=== PATIENT | female | born 1960 | race Caucasian/White ===

== ENCOUNTER → 2023-11-19 13:53 | Outpatient (REF) | payer OTHER, SELFPAY ==
[2023-11-19 14:43] LABS: INR 2.99
== END ==
LOC: REG 13:53
PROVIDERS: ATTENDING PHYSICIAN Family Medicine
DX: Z79.01 Long term (current) use of anticoagulants (principal); D68.318 Other hemorrhagic disorder due to intrinsic circulating anticoagulants, antibodies, or inhibitors
CPT/HCPCS: 36415; 85610

== ENCOUNTER → 2023-12-30 09:26 | Outpatient (REF) | payer OTHER, SELFPAY ==
[2023-12-30 14:17] LABS: INR 2.51
== END ==
LOC: REG 09:26
PROVIDERS: ATTENDING PHYSICIAN Family Medicine
DX: Z79.01 Long term (current) use of anticoagulants (principal); D68.318 Other hemorrhagic disorder due to intrinsic circulating anticoagulants, antibodies, or inhibitors
CPT/HCPCS: 36415; 85610

== ENCOUNTER → 2024-01-03 08:52 | Outpatient (REF) | payer OTHER, SELFPAY | LOC: WDC 08:52 | PROVIDERS: ATTENDING PHYSICIAN Physician Assistant | DX: Z12.31 Encounter for screening mammogram for malignant neoplasm of breast (principal) | CPT/HCPCS: 77063; 77067 ==

== ENCOUNTER → 2024-01-25 10:54 | Outpatient (REF) | payer OTHER, SELFPAY ==
[2024-01-25 11:54] LABS: INR 3.03; PT 31.3 Sec (11.4-14.6)
== END ==
LOC: REG 10:54
PROVIDERS: ATTENDING PHYSICIAN Family Medicine
DX: Z79.01 Long term (current) use of anticoagulants (principal); D68.318 Other hemorrhagic disorder due to intrinsic circulating anticoagulants, antibodies, or inhibitors
CPT/HCPCS: 36415; 85610

== ENCOUNTER → 2024-02-11 08:40 | Outpatient (REF) | payer OTHER, SELFPAY ==
[2024-02-11 13:34] LABS: INR 2.44; PT 26.4 Sec (11.4-14.6)
== END ==
LOC: REG 08:40
PROVIDERS: ATTENDING PHYSICIAN Family Medicine
DX: Z79.01 Long term (current) use of anticoagulants (principal)
CPT/HCPCS: 36415; 85610

== ENCOUNTER 2024-04-09 16:54 | Emergency (ER) | payer OTHER, SELFPAY ==
[2024-04-09 16:57] VITALS: BP 167/87
[2024-04-09 17:37] VITALS: BMI 26.3
--- NOTE | 2024-04-09 17:43 | ED.GENMED ---
History of Present Illness
General
Chief Complaint: Rabies
Source: patient
Exam Limitations: none
Time Seen by Provider: 04/09/24 17:20
Nursing documentation reviewed up to this point in time: agreed with
History of Present Illness
History of Present Illness:
patient states she was scratched by a stray cat 3 days ago. Evaluated by PCP today and sent to ED to begin rabies series. Presents with 3 puncture wounds left coker. NO s/s infection
Past History
Past History
ED Past Medical History: HTN and Other (Asthma, pulmonary embolus, Damico's esophagus)
ED Past Surgical History: Cardiac and Orthopedic
Social History
Tobacco: Former smoker
Alcohol: None
Drug: None
Living: with family
Employment: Employed
Family History
Family History: Hypertension and CAD (brother [place] at 54)
Review of Systems
Review of Systems
Allergies reviewed?: Yes
All Other Systems: ROS reviewed and negative except as documented in HPI and ROS
Constitutional: Reports no symptoms
Musculoskeletal: Reports no symptoms
Skin: Reports no symptoms (3 punture wounds left coker. No s/s infection)
Neurological: Reports no symptoms
Psychiatric: Reports no symptoms
Phy Exam
General Physical Exam
General Presentation: well appearing and no apparent distress
General age: appears stated age
General Skin: warm and dry
General Habitus: normal
General Mental: alert
Musculoskeletal Exam
Musculoskeletal Exam: full ROM
Skin Exam
Skin Exam: normal color, warm/dry, no rash and other (3 puncture wounds to left coker. NO redness swelling or discharge.)
Psychiatric Exam
Psychiatric Exam: normal mood/affect
Course
Orders/Labs/Results
Orders:
Orders
04/09/24 17:32
Rabies Vaccine (Pcec)/Pf [Rabavert Rabies Vacc W-Diluent] 2.5 unit IM .ONCE ONE
04/09/24 17:42
Rabies Immune Globulin/Pf [HyperRAB] 1,344 unit IM NOW STA
Vital Signs
Initial and Last Documented VS:
Initial Vital Signs
Temp Pulse Resp BP Pulse Ox
97.9 F 87 16 167/87 96
04/09/24 16:57 04/09/24 16:57 04/09/24 16:57 04/09/24 16:57 04/09/24 16:57
Last Documented Vital Signs
Temp Pulse Resp BP Pulse Ox
97.9 F 87 16 167/87 96
04/09/24 16:57 04/09/24 16:57 04/09/24 16:57 04/09/24 16:57 04/09/24 16:57
*Critical Care Note
Total Time (30-74mins, 75-104mins- exclusive of procedures): Not Applicable
ED Attending Note
-
Portions of this chart may have been created with voice recognition software.� Occasional wrong word or��sound alike� substitutions may have occurred due to the inherent limitations of voice recognition software.
Discharge Plan
Departure
Patient Disposition: Home (Routine Discharge)
Date of Disposition: 04/09/24
Time of Disposition: 17:33
Patient with high blood pressure during this ER visit?: No
Condition: Good
Covid-19: Not Applicable
Discharge Problem:
Exposure to rabies
Instructions: Rabies Vaccine, Wound Care ED
Prescriptions:
New
RabAvert (PF) 2.5 unit Suspension For Reconstitution
1 ml IM . DIRECTED Qty: 3 0RF
Rx Instructions:
See Rabies Vaccine Post Exposure Prophylaxis Instruction Sheet for Dosing Instructions
No Action
rabeprazole [AcipHex] 20 MG tablet,delayed release (DR/EC)
20 mg PO BID
valsartan-hydrochlorothiazide [Diovan HCT] 1 EACH tablet
1 ea PO DAILY
Patient Comments:
80/12.5
potassium chloride [Klor-Con M20] 20 MEQ tablet,ER particles/crystals
20 meq PO DAILY
folic acid 1 MG tablet
800 mcg PO DAILY
albuterol 17 GM aerosol
90 mcg IH PRN PRN (Reason: asthma)
Coumadin
10 mg PO QPM
calcium carbonate [Calcium 600] 600 MG tablet
1 tab PO DAILY
fluticasone propionate [Flovent HFA] 1 PUFF HFA aerosol inhaler
2 puff inhalation R BID
cyanocobalamin (vitamin B-12) 1,000 MCG tablet
1,000 mcg PO DAILY
oxycodone-acetaminophen 5 MG/325 MG tablet
1 - 2 tab PO Q4HPRN PRN (Reason: moderate to severe pain) Qty: 20 0RF
Stand Alone Forms: Rabies Vaccine Post Exp Dosing
Activity Restrictions/Additional Instructions:
Follow up at the infusion center for the remaining rabies vaccines.
Interventions
Interventions:
*General Assessment Last Done: 04/09/24 16:57
*Neglect/Abuse Screening Last Done: 04/09/24 17:23
*ED COVID-19 Vaccine History Last Done: 04/09/24 16:57
Discharge Date and Time
Print Language: MALIAN
[2024-04-09] MEDS: RABAVERT RABIES VACC W-DILUENT 2.5 UNIT IM (18:28)
[2024-04-09] MEDS: HyperRAB 1344 UNIT IM (18:36)
[2024-04-09 18:59] VITALS: BP 152/75
[2024-04-09 19:00] VITALS: BP 152/75
== END 2024-04-09 19:01 | disposition home or self-care (01) ==
LOC: EMR 16:54
PROVIDERS: EMERGENCY PHYSICIAN Emergency Medicine; FAMILY PHYSICIAN Physician Assistant
DX: Z20.3 Contact with and (suspected) exposure to rabies (principal); Z23 Encounter for immunization; Z29.14 Encounter for prophylactic rabies immune globulin; W55.03XA Scratched by cat, initial encounter
CPT/HCPCS: 99284; 90471; 96372; 90375; 90675

== ENCOUNTER 2024-04-23 14:10 | Outpatient (RCR) | payer OTHER, SELFPAY ==
[2024-04-13 14:32] VITALS: BP 117/56
[2024-04-13] MEDS: RABAVERT RABIES VACC W-DILUENT 2.5 UNIT IM (14:44)
[2024-04-16 14:31] VITALS: BP 150/68
[2024-04-16] MEDS: RABAVERT RABIES VACC W-DILUENT 2.5 UNIT IM (14:34)
[2024-04-23 14:30] VITALS: BP 142/58
[2024-04-23] MEDS: RABAVERT RABIES VACC W-DILUENT 2.5 UNIT IM (14:53)
== END 2024-04-24 08:26 | disposition home or self-care (01) ==
LOC: OID 14:10
PROVIDERS: ATTENDING PHYSICIAN Emergency Medicine; FAMILY PHYSICIAN Family Medicine
DX: Z20.3 Contact with and (suspected) exposure to rabies (principal); Z23 Encounter for immunization
CPT/HCPCS: 90471; 90675

== ENCOUNTER → 2024-05-12 10:05 | Outpatient (REF) | payer OTHER, SELFPAY ==
[2024-05-12 12:31] LABS: INR 3.18; PT 32.5 Sec (11.4-14.6)
== END ==
LOC: REG 10:05
PROVIDERS: ATTENDING PHYSICIAN Family Medicine
DX: Z79.01 Long term (current) use of anticoagulants (principal); D68.318 Other hemorrhagic disorder due to intrinsic circulating anticoagulants, antibodies, or inhibitors
CPT/HCPCS: 36415; 85610

== ENCOUNTER 2024-06-02 10:43 | Emergency (ER) | payer OTHER, SELFPAY ==
[2024-06-02 10:49] VITALS: BP 178/86
[2024-06-02 11:56] VITALS: BMI 24.1
--- NOTE | 2024-06-02 12:01 | ED.GENMED ---
History of Present Illness
General
Chief Complaint: Rabies
Source: patient and records
Exam Limitations: none
Time Seen by Provider: 06/02/24 11:12
Nursing documentation reviewed up to this point in time: agreed with
History of Present Illness
History of Present Illness:
63-year-old female presents for evaluation after a cat scratch�was referred to the ER for rabies booster. Patient reports that she was scratched by a stray cat on her left ankle. She says that she disclosed this to her PCP who sent her to the ER
for rabies booster. She notably had similar exposure in March and had full rabies vaccination series at that time. She says that the scratch occurred on Saturday and she has not noticed any redness or pain. No other complaints or issues.
Past History
Past History
ED Past Medical History: HTN and Other (Asthma, pulmonary embolus, Damico's esophagus)
ED Past Surgical History: Cardiac and Orthopedic
Social History
Tobacco: Former smoker
Alcohol: None
Drug: None
Living: with family
Employment: Employed
Family History
Family History: Hypertension and CAD (brother [place] at 54)
Review of Systems
Review of Systems
All Other Systems: ROS reviewed and negative except as documented in HPI and ROS
Skin: Reports other (Cat scratch)
Phy Exam
Physical Exam
Physical Exam:
General: Well appearing and non-toxic
HEENT: protecting airway
Neck: appears supple
CV: No evidence of cyanosis
Resp: No accessory muscle use
Abd: Non-distended
Extremities: No deformities
Neuro: Alert
Psych: Normal affect
Skin: Tiny superficial scratch on the left ankle with no erythema, warmth, induration, swelling or tenderness
Scores
Heart Failure Risk
Heart Failure Risk Score: Not Applicable
Heart Score for Chest Pain Patients
STEMI patient?: Not applicable
Withdrawal Assessment of Alcohol
Withdrawal Assessment Completed?: Not applicable
Course
Orders/Labs/Results
Orders:
Orders
06/02/24 11:45
Rabies Vaccine (Pcec)/Pf [Rabavert Rabies Vacc W-Diluent] 2.5 unit IM .ONCE ONE
Vital Signs
Initial and Last Documented VS:
Initial Vital Signs
Temp Pulse Resp BP Pulse Ox
36.8 C 74 16 178/86 98
06/02/24 10:49 06/02/24 10:49 06/02/24 10:49 06/02/24 10:49 06/02/24 10:49
Last Documented Vital Signs
Temp Pulse Resp BP Pulse Ox
36.8 C 74 16 178/86 98
06/02/24 10:49 06/02/24 10:49 06/02/24 10:49 06/02/24 10:49 06/02/24 10:49
MDM/Problems Addressed
Differential Diagnosis Includes:
Cat scratch, low risk rabies exposure
MDM/Problems Addressed:
63-year-old female sent in by her primary doctor for rabies booster�had a cat scratch on her ankle by a stray cat. No bites. She had her full rabies vaccination series a month and a half ago. No signs of wound infection. Per CDC guidelines we
will provide rabies vaccination booster today and on day 3. Discharge with return precautions for signs of infection. Follow-up with PCP for hypertension.
Acute Exacerbation and/or Progression of Chronic Illness:
Acutely hypertensive�no signs or symptoms of hypertensive emergency no indication for emergent antihypertensive treatment at present
Acute Exacerbation and/or Progression of Chronic Illness: HTN
*Pulse Oximetry
Patient hypoxic: no
*Critical Care Note
Total Time (30-74mins, 75-104mins- exclusive of procedures): Not Applicable
Data Reviewed
Source: patient and records
ED Attending Note
-
Portions of this chart may have been created with voice recognition software.� Occasional wrong word or��sound alike� substitutions may have occurred due to the inherent limitations of voice recognition software.
Discharge Plan
Departure
Patient Disposition: Home (Routine Discharge)
Date of Disposition: 06/02/24
Time of Disposition: 11:21
Patient with high blood pressure during this ER visit?: No
Discharge Problem:
Cat scratch
Instructions: Rabies Vaccine
Prescriptions:
New
RabAvert (PF) 2.5 unit Suspension For Reconstitution
1 ml IM . DIRECTED Qty: 1 0RF
Rx Instructions:
See Rabies Vaccine Post Exposure Prophylaxis Instruction Sheet for Dosing Instructions
No Action
rabeprazole [AcipHex] 20 MG tablet,delayed release (DR/EC)
20 mg PO BID
valsartan-hydrochlorothiazide [Diovan HCT] 1 EACH tablet
1 ea PO DAILY
Patient Comments:
80/12.5
potassium chloride [Klor-Con M20] 20 MEQ tablet,ER particles/crystals
20 meq PO DAILY
folic acid 1 MG tablet
800 mcg PO DAILY
albuterol 17 GM aerosol
90 mcg IH PRN PRN (Reason: asthma)
Coumadin
10 mg PO QPM
fluticasone propionate [Flovent HFA] 1 PUFF HFA aerosol inhaler
2 puff inhalation R BID
cyanocobalamin (vitamin B-12) 1,000 MCG tablet
500 mcg PO DAILY
RabAvert (PF) 2.5 unit Suspension For Reconstitution
1 ml IM . DIRECTED Qty: 3 0RF
Rx Instructions:
See Rabies Vaccine Post Exposure Prophylaxis Instruction Sheet for Dosing Instructions
Calcium + Vitamin D 600 mg calcium- 200 unit Tablet
1 tab PO DAILY
Stand Alone Forms: Rabies Vaccine Post Exp Dosing
Activity Restrictions/Additional Instructions:
You were seen after a cat scratch, sent in for rabies postexposure prophylaxis. You were given rabies vaccine today you should receive a booster on Saturday as directed. You do not need to receive the full vaccination series as you have been
vaccinated in the past. Please monitor the area of your cat scratch for signs of infection, if you notice redness or swelling, increased pain you should return to the emergency room to have the area assessed.
Thank you for visiting the Emergency Department at [facility].
1. Please schedule a follow up appointment as directed. Call first thing tomorrow morning to make an appointment.
2. If indicated, please take your medications as instructed and indicated on discharge paperwork.
3. If any of your symptoms do not improve, or persist, or become more severe within 6-12 hours, please return to the emergency department for further care.
4. Please return to the emergency department if you develop a headache, neck pain/stiffness, fever greater than 100.4F, chest pain, shortness of breath, persistent nausea, vomiting, slurred speech, difficulty walking, numbness/tingling, weakness,
signs of infection or any other symptoms that are worrisome to you.
Please call [phone] if you have any questions.
Interventions
Interventions:
*Risk Screen - Suicide Last Done: 06/02/24 10:49
*General Assessment Last Done: 06/02/24 10:49
*Neglect/Abuse Screening Last Done: 06/02/24 10:49
ED- Fall Risk Assessment Last Done: 06/02/24 12:05
*ED COVID-19 Vaccine History Last Done: 06/02/24 11:57
*Nursing Disposition Last Done: 06/02/24 12:05
Discharge Date and Time
Print Language: LATVIAN
[2024-06-02] MEDS: RABAVERT RABIES VACC W-DILUENT 2.5 UNIT IM (12:04)
== END 2024-06-02 12:06 | disposition home or self-care (01) ==
LOC: EMR 10:43
PROVIDERS: EMERGENCY PHYSICIAN Emergency Medicine; FAMILY PHYSICIAN Family Medicine
DX: Z20.3 Contact with and (suspected) exposure to rabies (principal); Z23 Encounter for immunization; S90.512A Abrasion, left ankle, initial encounter; W55.03XA Scratched by cat, initial encounter; I10 Essential (primary) hypertension; K21.9 Gastro-esophageal reflux disease without esophagitis; K22.70 Barrett's esophagus without dysplasia; J45.909 Unspecified asthma, uncomplicated; Z86.711 Personal history of pulmonary embolism; Z87.891 Personal history of nicotine dependence; Z90.49 Acquired absence of other specified parts of digestive tract; Z88.8 Allergy status to other drugs, medicaments and biological substances; Z91.041 Radiographic dye allergy status
CPT/HCPCS: 99281; 90471; 90675

== ENCOUNTER 2024-06-05 14:27 | Outpatient (RCR) | payer OTHER, SELFPAY ==
[2024-06-05 14:34] VITALS: BP 135/66
[2024-06-05] MEDS: RABAVERT RABIES VACC W-DILUENT 2.5 UNIT IM (14:49)
== END 2024-06-08 08:11 | disposition home or self-care (01) ==
LOC: OID 14:27
PROVIDERS: ATTENDING PHYSICIAN Emergency Medicine; FAMILY PHYSICIAN Family Medicine
DX: Z20.3 Contact with and (suspected) exposure to rabies (principal); Z23 Encounter for immunization
CPT/HCPCS: 90471; 90675

== ENCOUNTER → 2024-06-08 16:02 | Outpatient (REF) | payer OTHER, SELFPAY ==
[2024-06-08 17:00] LABS: INR 3.56; PT 35.6 Sec (11.4-14.6)
== END ==
LOC: REG 16:02
PROVIDERS: ATTENDING PHYSICIAN Family Medicine
DX: Z79.01 Long term (current) use of anticoagulants (principal)
CPT/HCPCS: 36415; 85610

== ENCOUNTER 2024-09-01 16:14 | Emergency (ER) | payer MEDICARE, OTHER, SELFPAY ==
[2024-09-01 16:17] VITALS: BP 176/74
--- NOTE | 2024-09-01 16:18 | ED.GENMED ---
ED Provider Triage
<Ly Orosco PA-C - Last Filed: 09/01/24 16:21>
-
Patient seen by provider in Triage?: Seen in Triage
Attestation: A medical screening examination has been initiated by a qualified medical provider. Based on the assessment performed at this time, it has been determined that an emergent medical condition may exist and the patient has been informed
that further medical evaluation and possible additional diagnostic testing may be needed.
HPI: 64yoF here with L lower back pain x 1 week. Started with stomach cramping yesterday and had pink tinged urine this morning. On Coumadin for prior PEs.
GENERAL: Alert , in no apparent distress
EYE: No visual abnormalities.
NECK: Trachea midline
ENT: No visible abnormalities.
LUNGS: No acute respiratory distress
NEUROLOGICAL: Alert and oriented
SKIN: Skin intact. No visible changes.
MUSCULOSKELETAL: Moving extremities normally
PSYCH: Normal and appropriate interaction.
This is a medical evaluation conducted in person to initiate diagnostic evaluation and provide initial therapeutics. Please see further documentation by the treating clinician.
CBC, CMP, UA, and CT abdomen without contrast ordered.
History of Present Illness
<Ly Orosco PA-C - Last Filed: 09/01/24 16:21>
General
Chief Complaint: Abdominal Symptoms
Time Seen by Provider: 09/01/24 19:49
<ANGELA Hong - Last Filed: 09/01/24 20:20>
General
Source: patient
Exam Limitations: none
History of Present Illness
History of Present Illness:
This is a 64 year old female that comes in with c/o left lower back and abd pain. States that she called the PCP and was told to come to the ER. States that she started a couple days ago with left lower back pain. Then Yesterday she started with
lower abd cramping. Today she had blood in her urine. Denies any fever, chills, chest pain, SOB, nausea, vomiting, diarrhea, headache, dizziness, burinray burning.
Past History
<Ly Orosco PA-C - Last Filed: 09/01/24 16:21>
Past History
ED Past Medical History: HTN and Other (Asthma, pulmonary embolus, Damico's esophagus)
ED Past Surgical History: Cardiac and Orthopedic
Social History
Tobacco: Former smoker
Alcohol: None
Drug: None
Living: with family
Employment: Employed
Family History
Family History: Hypertension and CAD (brother [place] at 54)
<ANGELA Hong - Last Filed: 09/01/24 20:20>
Past History
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
ED Past Surgical History: Cholecystectomy, Gynecological (Endometrial ablation), Orthopedic (Cartlidge removed from right knee) and Other (Vein stripping)
Social History
Tobacco: Former smoker
Alcohol: None
Drug: None
Personal:
Living: alone
Review of Systems
<ANGELA Hong - Last Filed: 09/01/24 20:20>
Review of Systems
All Other Systems: ROS reviewed and negative except as documented in HPI and ROS
Constitutional: Reports no symptoms; Denies fever or chills
EENT: Reports no symptoms
Respiratory: Reports no symptoms; Denies cough or trouble breathing
Cardiac: Reports no symptoms; Denies chest pain
ABD/GI: Reports abdominal pain; Denies nausea, vomiting or diarrhea
: Reports bleeding (In urine)
Musculoskeletal: Reports no symptoms
Skin: Reports no symptoms
Neurological: Reports no symptoms; Denies dizzy or headache
Psychiatric: Reports no symptoms
Phy Exam
<ANGELA Hong - Last Filed: 09/01/24 20:20>
General Physical Exam
General Presentation: well appearing and no apparent distress
General age: appears stated age
General Skin: warm and dry
General Habitus: elderly
General Mental: alert
General Hydration: appears well hydrated
ENT Exam
ENT Exam: TM's normal, pharynx normal and neck supple
Eye Exam
Eye Exam: EOMI
Cardiovascular Exam
Cardiovascular Exam: regular rate/rhythm, no murmur and normal peripheral pulses
Pulmonary Exam
Pulmonary Exam: lungs clear, no respiratory distress, no rales, chest non tender, no crackles, no rhonchi, no wheezing and no cough
Gastrointestinal Exam
Gastrointestinal Exam: normal bowel sounds, soft, no organomegaly, no pulsatile mass, non distended and tender (Upper abd tenderness and left sided tenderness with palpation)
Musculoskeletal Exam
Musculoskeletal Exam: full ROM and no edema
Skin Exam
Skin Exam: normal color, warm/dry, no rash and no petechia
Psychiatric Exam
Psychiatric Exam: normal mood/affect
Course
<Ly Orosco PA-C - Last Filed: 09/01/24 16:21>
Orders/Labs/Results
Orders:
Orders
09/01/24 16:21
CT Abd/pel Without Iv Or Oral Urgent
Comment:
Reason For Exam: L flank pain, hematuria
09/01/24 16:37
Complete Blood Count/With Diff Urgent
Comprehensive Metabolic Panel Urgent
Prothrombin Time Urgent
Urinalysis Reflex To Culture Urgent
Date Specimen was Collected: 09/01/24
Time Specimen was Collected: 16:24
Urine Microscopic Reflex Cult Urgent
Abnormal Lab Results
09/01/24
16:37
PT 42.5 H Sec
(11.4-14.6)
Potassium 3.4 L mmol/L
(3.5-5.1)
Glucose 140 H mg/dl
(70-99)
Ur Occult Blood Reflex 4+ A
(Negative)
Urine RBC >100 A /HPF
(0-2)
09/01/24 16:37
09/01/24 16:37
Vital Signs
Initial and Last Documented VS:
Initial Vital Signs
Temp Pulse Resp BP Pulse Ox
98.3 F 94 18 176/74 99
09/01/24 16:17 09/01/24 16:17 09/01/24 16:17 09/01/24 16:17 09/01/24 16:17
Last Documented Vital Signs
Temp Pulse Resp BP Pulse Ox
98.5 F 72 18 160/72 98
09/01/24 18:22 09/01/24 19:53 09/01/24 19:53 09/01/24 19:53 09/01/24 19:53
<ANGELA Hong - Last Filed: 09/01/24 20:20>
Orders/Labs/Results
Orders:
Orders
09/01/24 16:21
CT Abd/pel Without Iv Or Oral Urgent
Comment:
Reason For Exam: L flank pain, hematuria
09/01/24 16:37
Complete Blood Count/With Diff Urgent
Comprehensive Metabolic Panel Urgent
Prothrombin Time Urgent
Urinalysis Reflex To Culture Urgent
Date Specimen was Collected: 09/01/24
Time Specimen was Collected: 16:24
Urine Microscopic Reflex Cult Urgent
Abnormal Lab Results
09/01/24
16:37
PT 42.5 H Sec
(11.4-14.6)
Potassium 3.4 L mmol/L
(3.5-5.1)
Glucose 140 H mg/dl
(70-99)
Ur Occult Blood Reflex 4+ A
(Negative)
Urine RBC >100 A /HPF
(0-2)
09/01/24 16:37
09/01/24 16:37
PT 42.5 with INR 4.54, Potassium very slightly low. Hyperglycemia. Urine negative for infection, possitive for blood
Vital Signs
Initial and Last Documented VS:
Initial Vital Signs
Temp Pulse Resp BP Pulse Ox
98.3 F 94 18 176/74 99
09/01/24 16:17 09/01/24 16:17 09/01/24 16:17 09/01/24 16:17 09/01/24 16:17
Last Documented Vital Signs
Temp Pulse Resp BP Pulse Ox
98.5 F 72 18 160/72 98
09/01/24 18:22 09/01/24 19:53 09/01/24 19:53 09/01/24 19:53 09/01/24 19:53
<ANGELA Hong - Last Filed: 09/01/24 20:20>
MDM/Problems Addressed
Differential Diagnosis Includes:
Constipation. Diverticulitis, UTI.
MDM/Problems Addressed:
This is a 64 year old female that comes in with c/o lower abd pain, back pain on the left and blood in her urine today
Patient had blood work and CT scan. Explained to patient that her blood work shows that her Potassium is slightly low. Her CT scan shows constipation and a left ovarian cyst. Her PT/INR is elevated. Will have patient hold her Coumadin tonight and
recheck her level before starting. Patient to call her PCP for instruction. Will give patient a Bottle of Magnesium citrate and encouraged patient to increase her water intake to 8-8oz glasses daily. Follow up with the PCP. Return with any concerns.
Chronic conditions affecting care:
NA
Acute Exacerbation and/or Progression of Chronic Illness:
NA
<ANGELA Hong - Last Filed: 09/01/24 20:20>
*Radiology
Radiology exam reviewed: radiology read reviewed (CT-No evidence of urinary patholoty considering the unenhanced technique. Simple left ovarian cyst. Large amount of fecal material throughout the colon. Progressed. Severe atherosclerotic vascular
disease. Findings suggesting probable prominent Schmorl's nodes/old discitis of the superior endplate ) and other (CT cont- of endplate of L2. New from previous exam. )
*Pulse Oximetry
Patient hypoxic: no
*EKG
Interpreted by ED Provider?: NA
Rate: EKG- N/A
*Sales Account Coordinator Interpretation
Rate: Sales Account Coordinator- N/A
*Critical Care Note
Total Time (30-74mins, 75-104mins- exclusive of procedures): Not Applicable
ED Attending Note
<Ly Orosco PA-C - Last Filed: 09/01/24 16:21>
-
Portions of this chart may have been created with voice recognition software.� Occasional wrong word or��sound alike� substitutions may have occurred due to the inherent limitations of voice recognition software.
Discharge Plan
Departure
Disposition: Home (Routine Discharge)
Date of Disposition: 09/01/24
Time of Disposition: 20:18
Patient with high blood pressure during this ER visit?: Yes
Condition: Good
Covid-19: Not Applicable
Discharge Problem:
Elevated INR (international normalized ratio), Low back pain, Acute constipation
Instructions: Low Back Pain (DC), Prothrombin time and INR (PT/INR), Constipation, Adult ED, BLOOD PRESSURE
Prescriptions:
No Action
rabeprazole [AcipHex] 20 MG tablet,delayed release (DR/EC)
20 mg PO BID
valsartan-hydrochlorothiazide [Diovan HCT] 1 EACH tablet
1 ea PO DAILY
Patient Comments:
80/12.5
potassium chloride [Klor-Con M20] 20 MEQ tablet,ER particles/crystals
20 meq PO DAILY
folic acid 1 MG tablet
800 mcg PO DAILY
albuterol 17 GM aerosol
90 mcg IH PRN PRN (Reason: asthma)
Coumadin
10 mg PO QPM
fluticasone propionate [Flovent HFA] 1 PUFF HFA aerosol inhaler
2 puff inhalation R BID
cyanocobalamin (vitamin B-12) 1,000 MCG tablet
500 mcg PO DAILY
Calcium + Vitamin D 600 mg calcium- 200 unit Tablet
1 tab PO DAILY
RabAvert (PF) 2.5 unit Suspension For Reconstitution
1 ml IM . DIRECTED Qty: 1 0RF
Rx Instructions:
See Rabies Vaccine Post Exposure Prophylaxis Instruction Sheet for Dosing Instructions
Additional Instructions:
As discussed, your blood work shows that your potassium level is a little low. You have been given oral potassium here to help elevate this. Your INR is also to high. PLEASE HOLD YOUR COUMADIN TONIGHT AND CALL YOUR FAMILY DOCTOR TOMORROW FOR FURTHER
INSTRUCTION. Your CT shows that you are Constipated. You have been given a bottle of magnesium Citrate. This will work form the top down. IT can take up to 6 hour to work and can cause abd cramping. Please increase your water intake to 8-8oz glasses
daily. You may also use Tylenol 1000mg every 6 hours for the low back pain. IF YOU HAVE ANY OTHER CONCERNS PLEASE RETURN TO THE EMERGENCY ROOM.
Interventions
Interventions:
*Risk Screen - Suicide Last Done: 09/01/24 19:53
*Neglect/Abuse Screening Last Done: 09/01/24 19:53
RV-Louqtx-Adeldjbjhr Assessment Last Done: 09/01/24 19:53
Discharge Date and Time
Print Language: SENEGALESE
[2024-09-01 16:47] LABS: % Basophils 1.4 % (0-2); % Immature Granulocytes 0.2 % (0-0.5); % Lymphocytes 30.3 % (20.5-51.1); % Monocytes 8.2 % (1.7-9.3); % Neutrophils 58.9 % (42.2-75.2); Absolute Basophils 0.1 10^3/uL (0-0.2); Absolute Eosinophils 0.1 10^3/uL (0-0.7); Absolute Lymphocytes 1.8 10^3/uL (1.2-3.4); Absolute Monocytes 0.5 10^3/uL (0.1-0.6); Absolute Neutrophils 3.5 10^3/uL (1.4-6.5); Hematocrit 40.1 % (37.0-47.0); Hemoglobin 13.9 g/dL (12.0-16.0); Mean Corp Hgb Conc. 34.7 g/dL (33.0-37.0); Mean Corpuscular Volume 83.7 fL (81.0-99.0); Mean Platelet Volume 8.4 fL (7.4-10.4); Nucleated Red Blood Cells % 0 %; Platelet Count 381 10^3/uL (130-400); Red Blood Cell Count 4.79 10^6/uL (4.20-5.40); Red Cell Dist. Width 12.8 % (11.5-14.5); White Blood Cell Count 5.9 10^3/uL (4.8-10.8)
[2024-09-01 16:57] LABS: Urine Albumin Trace (Neg - Trace); Urine Bilirubin Negative (Negative); Urine Character Very Cloudy (Clear); Urine Color Yellow; Urine Glucose Negative (Negative); Urine Ketone Negative (Negative); Urine Leukocyte Negative (Negative); Urine Nitrite Negative (Negative); Urine Occult Blood 4+ (Negative); Urine Specific Gravity 1.005 (<1.030); Urine Urobilinogen Negative (Neg - 1+)
[2024-09-01 16:58] LABS: INR 4.54; PT 42.5 Sec (11.4-14.6)
[2024-09-01 17:03] LABS: Urine Red Blood Cell >100 /HPF (0-2); Urine Squamous Cell 0-2 /LPF (Few)
[2024-09-01 17:08] LABS: ALT (SGPT) 17 U/L (0-35); AST (SGOT) 23 U/L (14-36); Albumin 4.6 g/dl (3.5-5.0); Alkaline Phosphatase 107 U/L (38-126); Blood Urea Nitrogen 11 mg/dl (7-17); Calcium 9.4 mg/dl (8.4-10.2); Carbon Dioxide 28 mmol/L (22-30); Chloride 101 mmol/L (98-107); Glucose 140 mg/dl (70-99); Potassium 3.4 mmol/L (3.5-5.1); Sodium 142 mmol/L (135-145); Total Bilirubin 0.5 mg/dl (0.2-1.3); Total Protein 7.2 g/dl (6.3-8.2); eGFR > 60.00
[2024-09-01 18:22] VITALS: BP 151/65
[2024-09-01 19:53] VITALS: BP 160/72
[2024-09-01] MEDS: KLOR-CON 20 MEQ PO (20:35)
[2024-09-01] MEDS: CITROMA 300 ML PO (20:35)
== END 2024-09-01 20:39 | disposition home or self-care (01) ==
LOC: EMR 16:14
PROVIDERS: Physician Assistant; EMERGENCY PHYSICIAN Emergency Medicine; FAMILY PHYSICIAN Family Medicine
DX: R79.1 Abnormal coagulation profile (principal); M54.50 Low back pain, unspecified; K59.09 Other constipation; I10 Essential (primary) hypertension; J45.909 Unspecified asthma, uncomplicated; K21.9 Gastro-esophageal reflux disease without esophagitis; Z79.01 Long term (current) use of anticoagulants; Z82.49 Family history of ischemic heart disease and other diseases of the circulatory system; Z86.711 Personal history of pulmonary embolism; Z87.19 Personal history of other diseases of the digestive system; Z87.891 Personal history of nicotine dependence; Z90.49 Acquired absence of other specified parts of digestive tract
CPT/HCPCS: 99284; 74176; 80053; 81003; 81015; 85025; 85610

== ENCOUNTER 2024-09-07 09:48 | Emergency (ER) | payer MEDICARE, OTHER, SELFPAY ==
[2024-09-07 10:00] VITALS: BP 162/82
--- NOTE | 2024-09-07 11:07 | ED.GENMED ---
History of Present Illness
General
Chief Complaint: Rabies
Time Seen by Provider: 09/07/24 10:35
History of Present Illness
History of Present Illness:
64-year-old female presents to the emergency department for evaluation of a cat scratch to the left hand. Scratched by an outdoor cat and does not know the whereabouts of the animal. She did receive full rabies booster vaccination and
immunoglobulin earlier this year. Denies any pain to the site. Did wash the area with water and peroxide.
Past History
Past History
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
ED Past Surgical History: Cardiac, Cholecystectomy, Gynecological (Endometrial ablation), Orthopedic (Cartlidge removed from right knee) and Other (Vein stripping)
Social History
Tobacco: Former smoker
Alcohol: None
Drug: None
Personal:
Living: alone
Employment: Employed
Family History
Family History: Hypertension and CAD (brother [place] at 54)
Review of Systems
Review of Systems
Allergies reviewed?: Yes
All Other Systems: ROS reviewed and negative except as documented in HPI and ROS
Phy Exam
Physical Exam
Physical Exam:
GEN: Well appearing, NAD, WDWN
HEENT: Oral mucosa moist, no scleral icterus
Cardiac: Regular rate
Lung: No respiratory distress, no tachypnea
MSK: No gross deformity or injuries
Skin: Good color, no pallor or jaundice, no rashes. Minor abrasion to the palmar aspect of the left hand proximal to the fifth MCP joint, no erythema or discharge
Neuro: AO x3, moves all extremities freely
Psych: Calm, cooperative
Course
Vital Signs
Initial and Last Documented VS:
Initial Vital Signs
Temp Pulse Resp BP Pulse Ox
97.9 F 80 16 162/82 98
09/07/24 10:00 09/07/24 10:00 09/07/24 10:00 09/07/24 10:00 09/07/24 10:00
Last Documented Vital Signs
Temp Pulse Resp BP Pulse Ox
97.9 F 80 16 162/82 98
09/07/24 10:00 09/07/24 10:00 09/07/24 10:00 09/07/24 10:00 09/07/24 10:00
MDM/Problems Addressed
MDM/Problems Addressed:
Provide prophylactic antibiotics. Do not see any indication for rabies postexposure prophylaxis given that this was a scratch and the patient had rabies series performed earlier this year.
*Critical Care Note
Total Time (30-74mins, 75-104mins- exclusive of procedures): Not Applicable
ED Attending Note
-
Portions of this chart may have been created with voice recognition software.� Occasional wrong word or��sound alike� substitutions may have occurred due to the inherent limitations of voice recognition software.
Discharge Plan
Departure
Patient Disposition: Home (Routine Discharge)
Date of Disposition: 09/07/24
Time of Disposition: 11:08
Patient with high blood pressure during this ER visit?: No
Discharge Problem:
Cat scratch
Instructions: Animal Bites (DC)
Prescriptions:
New
amoxicillin-pot clavulanate 875-125 mg tablet
1 tab PO BID 3 Days Qty: 6 0RF
No Action
rabeprazole [AcipHex] 20 MG tablet,delayed release (DR/EC)
20 mg PO BID
valsartan-hydrochlorothiazide [Diovan HCT] 1 EACH tablet
1 ea PO DAILY
Patient Comments:
80/12.5
potassium chloride [Klor-Con M20] 20 MEQ tablet,ER particles/crystals
20 meq PO DAILY
folic acid 1 MG tablet
800 mcg PO DAILY
albuterol 17 GM aerosol
90 mcg IH PRN PRN (Reason: asthma)
Coumadin
10 mg PO QPM
fluticasone propionate [Flovent HFA] 1 PUFF HFA aerosol inhaler
2 puff inhalation R BID
cyanocobalamin (vitamin B-12) 1,000 MCG tablet
500 mcg PO DAILY
Calcium + Vitamin D 600 mg calcium- 200 unit Tablet
1 tab PO DAILY
RabAvert (PF) 2.5 unit Suspension For Reconstitution
1 ml IM . DIRECTED Qty: 1 0RF
Rx Instructions:
See Rabies Vaccine Post Exposure Prophylaxis Instruction Sheet for Dosing Instructions
Referrals:
Tito aSmayoa MD [Family Provider] -
Stand Alone Forms: Rabies Vaccine Post Exp Dosing
Interventions
Interventions:
*Risk Screen - Suicide Last Done: 09/07/24 10:00
*General Assessment Last Done: 09/07/24 10:00
*Neglect/Abuse Screening Last Done: 09/07/24 10:00
*ED COVID-19 Vaccine History Last Done: 09/07/24 10:00
*Nursing Disposition Last Done: 09/07/24 11:16
Discharge Date and Time
Discharge Date/Time: 09/07/24 11:16
Print Language: ITALIAN
== END 2024-09-07 11:16 | disposition home or self-care (01) ==
LOC: EMR 09:48
PROVIDERS: EMERGENCY PHYSICIAN Emergency Medicine; FAMILY PHYSICIAN Family Medicine
DX: S60.512A Abrasion of left hand, initial encounter (principal); W55.03XA Scratched by cat, initial encounter; J45.909 Unspecified asthma, uncomplicated; I10 Essential (primary) hypertension; K21.9 Gastro-esophageal reflux disease without esophagitis; Z87.891 Personal history of nicotine dependence
CPT/HCPCS: 99283

== ENCOUNTER → 2024-09-18 11:19 | Outpatient (REF) | payer MEDICARE, OTHER, SELFPAY ==
[2024-09-18 12:31] LABS: INR 2.99
[2024-09-18 12:37] LABS: ALT (SGPT) 16 U/L (0-35); AST (SGOT) 23 U/L (14-36); Albumin 4.5 g/dl (3.5-5.0); Alkaline Phosphatase 129 U/L (38-126); Blood Urea Nitrogen 8 mg/dl (7-17); Calcium 9.6 mg/dl (8.4-10.2); Carbon Dioxide 32 mmol/L (22-30); Chloride 98 mmol/L (98-107); Glucose 98 mg/dl (70-99); HDL Cholesterol 99 mg/dl; LDL Cholesterol, Calculated 60 mg/dl; Potassium 4.1 mmol/L (3.5-5.1); Sodium 138 mmol/L (135-145); Total Bilirubin 0.4 mg/dl (0.2-1.3); Total Cholesterol 172 mg/dl (50-199); Total Protein 6.9 g/dl (6.3-8.2); Triglyceride 66 mg/dl (10-149); Very Low Density Lipoprotein 13 mg/dl (0-30); eGFR > 60.00
[2024-09-18 14:16] LABS: Glycohemoglobin (HgbA1c) 5.6 % (4.0-5.6)
[2024-09-18 15:06] LABS: TSH 1.19 uIU/ml (0.47-4.68)
== END ==
LOC: REG 11:19
PROVIDERS: ATTENDING PHYSICIAN Nurse Practitioner Family
DX: Z86.711 Personal history of pulmonary embolism (principal); K59.09 Other constipation; M54.50 Low back pain, unspecified; M25.562 Pain in left knee; G89.29 Other chronic pain; I70.90 Unspecified atherosclerosis; R73.09 Other abnormal glucose; E87.6 Hypokalemia
CPT/HCPCS: 36415; 80053; 80061; 83036; 84439; 84443; 85610

== ENCOUNTER → 2024-10-07 10:55 | Outpatient (REF) | payer MEDICARE, OTHER, SELFPAY | LOC: RAD 10:55 | PROVIDERS: ATTENDING PHYSICIAN Nurse Practitioner Family; FAMILY PHYSICIAN Family Medicine | DX: M25.562 Pain in left knee (principal) | CPT/HCPCS: 73502; 73564 ==

== ENCOUNTER → 2024-11-27 14:33 | Outpatient (REF) | payer MEDICARE, OTHER, SELFPAY | LOC: RAD 14:33 | PROVIDERS: ATTENDING PHYSICIAN Student in an Organized Health Care Education/Training Program; FAMILY PHYSICIAN Family Medicine | DX: N83.202 Unspecified ovarian cyst, left side (principal) | CPT/HCPCS: 76830; 76856 ==

== ENCOUNTER 2024-12-12 20:05 | Emergency (ER) | payer MEDICARE, OTHER, SELFPAY ==
[2024-12-12 20:09] VITALS: BP 149/73
[2024-12-12 22:10] LABS: PT 21.1 Sec (11.4-14.6)
--- NOTE | 2024-12-12 23:04 | ED.GENMED ---
History of Present Illness
General
Chief Complaint: Facial Problem
Source: patient
Exam Limitations: none
Time Seen by Provider: 12/12/24 21:05
Nursing documentation reviewed up to this point in time: agreed with
History of Present Illness
History of Present Illness:
64-year-old female presenting to the emergency department today after trip and fall hitting the left side of her face. Does take Coumadin due to previous blood clots. INR has been slightly low recently. Did not lose consciousness otherwise feels
well
Past History
Past History
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
ED Past Surgical History: Cardiac, Cholecystectomy, Gynecological (Endometrial ablation), Orthopedic (Cartlidge removed from right knee) and Other (Vein stripping)
Social History
Tobacco: Former smoker
Alcohol: None
Drug: None
Personal:
Living: alone
Employment: Employed
Family History
Family History: Hypertension and CAD (brother [place] at 54)
Review of Systems
Review of Systems
Allergies reviewed?: Yes
All Other Systems: ROS reviewed and negative except as documented in HPI and ROS
Phy Exam
Physical Exam
Physical Exam:
GENERAL: Alert , in no apparent distress
EYE: pupils equal and reactive
NECK: Supple, no significant adenopathy.
ENT: Superficial abrasion to the left cheek. o/p clr, mmm.
CARDIAC: Regular rate and rhythm .
LUNGS: Clear breath sounds bilaterally, no acute respiratory distress, no wheezes/rales/rhonchi
ABDOMEN: Soft, without focal tenderness, no r/g, no cvat
NEUROLOGICAL: Alert and oriented, no focal neuro deficits
SKIN: Warm and dry, skin intact.
MUSCULOSKELETAL: No edema, well perfused.
PSYCH: Normal and appropriate interaction.
Course
Orders/Labs/Results
Orders:
Orders
12/12/24 21:22
CT Facial Bones W/o Iv Contras Urgent
Comment:
Reason For Exam: facial injury
CT Head W/o Iv Contrast Urgent
Comment:
Reason For Exam: fall hit head on coumadin
12/12/24 21:35
PT/INR [Prothrombin Time] Urgent
Abnormal Lab Results
12/12/24
21:35
PT 21.1 H Sec
(11.4-14.6)
Vital Signs
Initial and Last Documented VS:
Initial Vital Signs
Temp Pulse Resp Pulse Ox
97.6 F 80 18 97
12/12/24 20:07 12/12/24 20:07 12/12/24 20:07 12/12/24 20:07
Last Documented Vital Signs
Temp Pulse Resp BP Pulse Ox
97.6 F 80 18 149/73 97
12/12/24 20:07 12/12/24 20:07 12/12/24 20:07 12/12/24 20:09 12/12/24 20:07
MDM/Problems Addressed
MDM/Problems Addressed:
64-year-old female presenting after ground-level fall onto carpet. Hit the left side of her face. Did not lose consciousness not on blood thinners. She otherwise feels generally well. CT scan without emergent finding stable for outpatient
management. INR slightly low we will follow-up closely for ongoing management of this. Return precautions given.
*Critical Care Note
Total Time (30-74mins, 75-104mins- exclusive of procedures): Not Applicable
ED Attending Note
-
Portions of this chart may have been created with voice recognition software.� Occasional wrong word or��sound alike� substitutions may have occurred due to the inherent limitations of voice recognition software.
Discharge Plan
Departure
Patient Disposition: Home (Routine Discharge)
Date of Disposition: 12/12/24
Time of Disposition: 23:06
Patient with high blood pressure during this ER visit?: No
Condition: Good
Covid-19: Not Applicable
Discharge Problem:
Abrasion of face, Fall, Subtherapeutic international normalized ratio (INR)
Instructions: Preventing falls in adults
Prescriptions:
No Action
rabeprazole [AcipHex] 20 MG tablet,delayed release (DR/EC)
20 mg PO BID
valsartan-hydrochlorothiazide [Diovan HCT] 1 EACH tablet
1 ea PO DAILY
Patient Comments:
80/12.5
potassium chloride [Klor-Con M20] 20 MEQ tablet,ER particles/crystals
20 meq PO DAILY
folic acid 1 MG tablet
800 mcg PO DAILY
albuterol 17 GM aerosol
90 mcg IH PRN PRN (Reason: asthma)
Coumadin
10 mg PO QPM
fluticasone propionate [Flovent HFA] 1 PUFF HFA aerosol inhaler
2 puff inhalation R BID
cyanocobalamin (vitamin B-12) 1,000 MCG tablet
500 mcg PO DAILY
Calcium + Vitamin D 600 mg calcium- 200 unit Tablet
1 tab PO DAILY
RabAvert (PF) 2.5 unit Suspension For Reconstitution
1 ml IM . DIRECTED Qty: 1 0RF
Rx Instructions:
See Rabies Vaccine Post Exposure Prophylaxis Instruction Sheet for Dosing Instructions
amoxicillin-pot clavulanate 875-125 mg tablet
1 tab PO BID 3 Days Qty: 6 0RF
Referrals:
UNKNOWN - PT NOT,INTERVIEWE [Family Provider] -
Activity Restrictions/Additional Instructions:
You came to the emergency department today after a fall. Your CT scans did not show emergent findings. Please follow closely for your slightly low INR level. Return for any worsening, new or concerning symptoms.
Interventions
Interventions:
*Risk Screen - Suicide Last Done: 12/12/24 20:09
*General Assessment Last Done: 12/12/24 20:09
*Neglect/Abuse Screening Last Done: 12/12/24 20:09
*ED COVID-19 Vaccine History Last Done: 12/12/24 20:09
Discharge Date and Time
Print Language: ARMENIAN
[2024-12-12 23:14] VITALS: BP 160/74
== END 2024-12-12 23:16 | disposition home or self-care (01) ==
LOC: EMR 20:05
PROVIDERS: Physician Assistant; EMERGENCY PHYSICIAN Emergency Medicine; FAMILY PHYSICIAN Family Medicine
DX: S00.81XA Abrasion of other part of head, initial encounter (principal); R79.1 Abnormal coagulation profile; W01.0XXA Fall on same level from slipping, tripping and stumbling without subsequent striking against object, initial encounter; J45.909 Unspecified asthma, uncomplicated; K21.9 Gastro-esophageal reflux disease without esophagitis; I10 Essential (primary) hypertension; Z79.01 Long term (current) use of anticoagulants; Z82.49 Family history of ischemic heart disease and other diseases of the circulatory system; Z86.718 Personal history of other venous thrombosis and embolism; Z87.891 Personal history of nicotine dependence; Z90.49 Acquired absence of other specified parts of digestive tract
CPT/HCPCS: 99284; 70450; 70486; 85610

== ENCOUNTER → 2024-12-21 08:23 | Outpatient (REF) | payer MEDICARE, OTHER, SELFPAY | LOC: RAD 08:23 | PROVIDERS: ATTENDING PHYSICIAN Nurse Practitioner Family; FAMILY PHYSICIAN Family Medicine | DX: R20.0 Anesthesia of skin (principal) | CPT/HCPCS: 93922; 93925 ==

== ENCOUNTER → 2025-05-27 13:24 | Outpatient (REF) | payer MEDICARE, OTHER, SELFPAY | LOC: WDC 13:24 | PROVIDERS: ATTENDING PHYSICIAN Student in an Organized Health Care Education/Training Program; FAMILY PHYSICIAN Family Medicine | DX: Z12.31 Encounter for screening mammogram for malignant neoplasm of breast (principal) | CPT/HCPCS: 77063; 77067 ==

== ENCOUNTER → 2025-06-07 09:47 | Outpatient (REF) | payer MEDICARE, OTHER, SELFPAY | LOC: WDC 09:47 | PROVIDERS: ATTENDING PHYSICIAN Student in an Organized Health Care Education/Training Program; FAMILY PHYSICIAN Family Medicine | DX: R92.8 Other abnormal and inconclusive findings on diagnostic imaging of breast (principal) | CPT/HCPCS: 76642 ==

== ENCOUNTER → 2025-06-15 10:26 | Outpatient (REF) | payer MEDICARE, OTHER, SELFPAY | LOC: RAD 10:26 | PROVIDERS: ATTENDING PHYSICIAN Student in an Organized Health Care Education/Training Program; FAMILY PHYSICIAN Family Medicine | DX: N83.202 Unspecified ovarian cyst, left side (principal) | CPT/HCPCS: 76830; 76856 ==